=== PATIENT | female | born 1965 | race Caucasian/White ===

== ENCOUNTER 2018-05-31 18:55 | Emergency (ER) | payer MEDICARE ==
[~2018-05-31] VITALS: Ht 170.2 cm; Wt 72.6 kg
[2018-05-31 19:03] VITALS: BP 156/103
== END 2018-05-31 22:43 | disposition left against medical advice (07) ==
LOC: ER 18:55
DX: M25.531 Pain in right wrist (principal); Z53.21 Procedure and treatment not carried out due to patient leaving prior to being seen by health care provider
CPT/HCPCS: 73090

== ENCOUNTER 2024-06-25 21:57 | Emergency (ER) | payer MEDICARE, MEDICAID ==
[~2024-06-25] VITALS: Ht 165.1 cm; Wt 64.4 kg
[2024-06-26 00:01] VITALS: PULSE 108; RESP 16; O2SAT 96
[2024-06-26] MEDS: TETANUS-DIPTH-ACEL PERTUSSIS 0.5ML SYR Tdap IM ONE (01:08)
[2024-06-26 01:14] VITALS: BP 146/98; PULSE 106; RESP 18; TEMP 98.9; O2SAT 95
[2024-06-26] MEDS ORDERED: BACDST PO (01:44)
[2024-06-26] MEDS: KETOROLAC TROMETH 60MG/2ML VIAL IM ONE (01:52)
== END 2024-06-26 01:53 | disposition home or self-care (01) ==
LOC: ER 21:57
DX: S61.431A Puncture wound without foreign body of right hand, initial encounter (principal); L08.89 Other specified local infections of the skin and subcutaneous tissue; W55.01XA Bitten by cat, initial encounter; Y93.89 Activity, other specified; Y92.89 Other specified places as the place of occurrence of the external cause; Y99.8 Other external cause status
CPT/HCPCS: 73130; 90471; 90715; 99283; J1885